=== PATIENT | female | born 2000 | race American Indian/Alaskan Native ===

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

== ENCOUNTER 2019-05-21 18:57 | Emergency (ER) | payer OTHER ==
--- NOTE | 2019-05-21 19:22 | Event Note ---
ED Screening Note Date of service: 05/21/19 Time: 19:18 ED Screening Note: 19 y/o female comes in for left neck pain and shoulder pain from sleeping. No trauma. This initial assessment/diagnostic orders/clinical plan/treatment(s) is/are subject to change based on patients health status, clinical progression and re- assessment by fellow clinical providers in the ED. Further treatment and workup at subsequent clinical providers discretion. Patient/guardian urged not to elope from the ED as their condition may be serious if not clinically assessed and managed. Initial orders include:
[2019-05-21] MEDS ORDERED: FLEXERIL PO ONE ×2 (21:10→21:28)
[2019-05-21] MEDS ORDERED: TYLENOL PO ONE (21:10)
--- NOTE | 2019-05-21 21:28 | Emergency Department Report ---
ED Neck Pain HPI Chief Complaint: Neck Pain/Injury Stated Complaint: NECK/SHOULDER/ARM PAIN Time Seen by Provider: 05/21/19 19:45 Other History: Patient is a 19-year-old female who presents to emergency room with complaints of left-sided neck pain and left shoulder pain that began this morning. patient states she turned over wrong in her bed this morning. pt denies any injury, fall, trauma, numbness, or weakness. pt has not taken anything for her discomfort. she has never had before. LNMP last week. no PMHx. allergy to motrin. ED Review of Systems ROS: Stated complaint: NECK/SHOULDER/ARM PAIN Other details as noted in HPI Comment: All other systems reviewed and negative ED Past Medical Hx - Past Medical History Previous Medical History?: No - Surgical History Past Surgical History?: No - Social History Smoking Status: Never Smoker Substance Use Type: Alcohol - Medications Home Medications: Home Medications Medication Instructions Recorded Confirmed Last Taken Type Amoxicillin [Amoxicillin TAB] 875 mg PO BID #14 tablet 01/21/17 Unknown Rx Brompheniramine/Pseudoephed/Dm 5 ml PO Q8H PRN #100 syrup 01/21/17 Unknown Rx [Bromfed Dm Cough Syrup] Cetirizine HCl [ZyrTEC] 10 mg PO QDAY #14 capsule 01/21/17 Unknown Rx Fluticasone [Flonase] 1 spray NS QDAY #1 bottle 01/21/17 Unknown Rx Neck Pain Exam - Exam General: Vital signs noted. No distress. Alert and acting appropriately. Neck Pain: Yes Left Trapezius Tenderness, Yes Pain with Flexion, No Midline Tenderness, No Right Paraspinal Tenderness, No Left Paraspinal Tenderness, No Right Trapezius Tenderness, No Pain with Rotation Right, No Pain with Rotation Left, No Pain with Extension, No pain with R Lateral Flexion, No Pain with L Lateral Flexion Chest: Yes Clear Lung Sounds, No Pain with Respirations Heart: Yes Regular, No Murmur Back: No Thoracic Tenderness, No Lumbar Tenderness Neuro: No Numbness, No Weakness, No Radicular Deficits ED Course Vital Signs 05/21/19 19:21 Temperature 98.5 F Pulse Rate 102 H Respiratory 19 Rate Blood Pressure 116/76 O2 Sat by Pulse 100 Oximetry ED Medical Decision Making - Medical Decision Making Patient is a 19-year-old female who presents to emergency room with complaints of left-sided neck pain and left shoulder pain that began this morning. patient states she turned over wrong in her bed this morning. pt denies any injury, fall, trauma, numbness, or weakness. pt has not taken anything for her discomfort. she has never had before. LNMP last week. no PMHx. allergy to motrin. on exam pt has left trapezius TTP, no midline C-spine tenderness, no step offs, no deformities, FROM of the neck without difficulty, no focal neuro deficit, neurovascularly intact throughout. pt given anti-inflammatory and muscle relaxer while in the ED. discussed to please take Tylenol as needed for discomfort. May use ice, rest, heat, epsom salt bath. Follow up with her primary care doctor next 2-3 days. Return to the emergency room for any new or worsening symptoms Critical care attestation.: If time is entered above; I have spent that time in minutes in the direct care of this critically ill patient, excluding procedure time. ED Disposition Clinical Impression: Strain of left trapezius muscle Qualifiers: Encounter type: sequela Qualified Code(s): S46.812S - Strain of other muscles, fascia and tendons at shoulder and upper arm level, left arm, sequela Disposition: - TO HOME OR SELFCARE Is pt being admited?: No Does the pt Need Aspirin: No Condition: Stable Instructions: Muscle Strain (ED) Additional Instructions: Please take Tylenol as needed for discomfort. May use ice, rest, heat, epsom salt bath. Follow up with her primary care doctor next 2-3 days. Return to the emergency room for any new or worsening symptoms Referrals: [facility] [Outside] - 2-3 Days [facility] [Provider Group] - 2-3 Days [facility] [Outside] - 2-3 Days Time of Disposition: 21:29 Print Language: CITIZEN OF [place]
[2019-05-21 21:50] VITALS: BP 113/69
== END 2019-05-21 21:49 | disposition home or self-care (01) ==
LOC: ED 18:57
DX: S46.812A Strain of other muscles, fascia and tendons at shoulder and upper arm level, left arm, initial encounter (principal); Z79.1 Long term (current) use of non-steroidal anti-inflammatories (NSAID); Z88.5 Allergy status to narcotic agent; X58.XXXA Exposure to other specified factors, initial encounter; Y93.89 Activity, other specified; Y92.89 Other specified places as the place of occurrence of the external cause; Y99.8 Other external cause status
CPT/HCPCS: 99282

== ENCOUNTER 2019-06-30 00:48 | Emergency (ER) | payer OTHER ==
[2019-06-30] MEDS ORDERED: ATIVAN IV ONE (01:00)
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
[2019-06-30 02:03] VITALS: BP 122/78
== END 2019-06-30 02:32 | disposition home or self-care (01) ==
LOC: ED 00:48
DX: S20.212A Contusion of left front wall of thorax, initial encounter (principal); F41.9 Anxiety disorder, unspecified; Z87.891 Personal history of nicotine dependence; Z79.899 Other long term (current) drug therapy; Z88.6 Allergy status to analgesic agent; V89.2XXA Person injured in unspecified motor-vehicle accident, traffic, initial encounter; Y93.89 Activity, other specified; Y92.488 Other paved roadways as the place of occurrence of the external cause; Y99.8 Other external cause status
CPT/HCPCS: 71101; 93005; 93010; 96374; 99284; J2060

== ENCOUNTER 2019-07-07 20:33 | Emergency (ER) | payer OTHER ==
--- NOTE | 2019-07-07 20:53 | Event Note ---
ED Screening Note ED Screening Note: SEEN 06/30 XRAY NEG HERE FOR GEN PAIN WANTS RECHECK This initial assessment/diagnostic orders/clinical plan/treatment(s) is/are subject to change based on patients health status, clinical progression and re- assessment by fellow clinical providers in the ED. Further treatment and workup at subsequent clinical providers discretion. Patient/guardian urged not to elope from the ED as their condition may be serious if not clinically assessed and managed. Initial orders include:
[2019-07-07 20:56] VITALS: BP 132/72
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
== END 2019-07-07 23:08 | disposition home or self-care (01) ==
LOC: ED 20:33
DX: R07.81 Pleurodynia (principal); M79.10 Myalgia, unspecified site; F41.9 Anxiety disorder, unspecified; V89.2XXD Person injured in unspecified motor-vehicle accident, traffic, subsequent encounter
CPT/HCPCS: 99282

== ENCOUNTER 2019-09-01 20:09 | Emergency (ER) | payer SELFPAY ==
--- NOTE | 2019-09-01 20:37 | Event Note ---
ED Screening Note Date of service: 09/01/19 Time: 20:36 ED Screening Note: 19 y/o female comes in for pelvic pain and vaginal discharge time 2 weeks. LMP 08/07/19. G0. This initial assessment/diagnostic orders/clinical plan/treatment(s) is/are subject to change based on patients health status, clinical progression and re- assessment by fellow clinical providers in the ED. Further treatment and workup at subsequent clinical providers discretion. Patient/guardian urged not to elope from the ED as their condition may be serious if not clinically assessed and managed. Initial orders include:
[2019-09-01 20:38] VITALS: BP 120/66
[2019-09-01 21:21] LABS: Bilirubin,Urine NEG (Negative); Blood,Urine NEG (Negative); Color,Urine Straw (Yellow); Protein,Urine <15 mg/dL mg/dL (Negative); Urobilinogen,Urine < 2.0 mg/dL (<2.0)
[2019-09-01] MEDS ORDERED: AZITHROMYCIN 1 GM ORAL PWDR PACKET PO ONE (21:22)
[2019-09-01] MEDS ORDERED: LIDOCAINE-MPF (1%) 10 MG/1 ML VIAL 5 ML INFILTRATI ONE (21:22)
--- NOTE | 2019-09-01 21:27 | Emergency Department Report ---
HPI - General Chief Complaint: Abdominal Pain Time Seen by Provider: 09/01/19 20:35 - HPI HPI: Room 38 The patient is a 19-year-old female presenting with chief complaint vaginal discharge. The patient states for the past 2-3 weeks she's had vaginal di scharge which has been pink and brown in color. Patient states she's had dysuria for the same time. Patient denies hematuria but admits to 1 day of vaginal bleeding after having intercourse. Patient denies history of fever. Patient states her last menstrual cycle occurs 08/09/2019 was within normal limits. Patient is to vaginal irritation ED Past Medical Hx - Past Medical History Previous Medical History?: No Additional medical history: Panic Attacks/ anxiety - Surgical History Past Surgical History?: No - Family History Family history: no significant - Social History Smoking Status: Current Every Day Smoker Substance Use Type: Alcohol (occasional) - Medications Home Medications: Home Medications Medication Instructions Recorded Confirmed Last Taken Type Amoxicillin [Amoxicillin TAB] 875 mg PO BID #14 tablet 01/21/17 Unknown Rx Brompheniramine/Pseudoephed/Dm 5 ml PO Q8H PRN #100 syrup 01/21/17 Unknown Rx [Bromfed Dm Cough Syrup] Cetirizine HCl [ZyrTEC] 10 mg PO QDAY #14 capsule 01/21/17 Unknown Rx Fluticasone [Flonase] 1 spray NS QDAY #1 bottle 01/21/17 Unknown Rx methOCARBAMOL [Robaxin TAB] 500 mg PO Q6H PRN #14 tablet 06/30/19 Unknown Rx traMADol [Ultram] 50 mg PO Q6HR PRN #12 tablet 06/30/19 Unknown Rx Ciprofloxacin HCl [Ciprofloxacin 500 mg PO Q12HR #14 tab 09/01/19 Unknown Rx TAB] Ibuprofen [Motrin 800 MG tab] 800 mg PO Q8HR PRN #20 tablet 09/01/19 Unknown Rx Phenazopyridine [Pyridium] 200 mg PO TID #6 tab 09/01/19 Unknown Rx ED Review of Systems ROS: Stated complaint: FEMALE CHECK UP/BLOOD WORK Other details as noted in HPI Constitutional: denies: fever Eyes: denies: eye pain ENT: denies: throat pain Respiratory: no symptoms reported Cardiovascular: denies: chest pain Endocrine: no symptoms reported Gastrointestinal: abdominal pain Genitourinary: dysuria, discharge, abnormal menses. denies: hematuria Musculoskeletal: denies: back pain Neurological: denies: headache Physical Exam - Physical Exam Vital Signs: Vital Signs 09/01/19 09/01/19 20:15 20:35 Temperature 98.3 F 98.6 F Pulse Rate 89 96 H Respiratory 16 16 Rate Blood Pressure 129/65 120/66 O2 Sat by Pulse 100 100 Oximetry Physical Exam: GENERAL: The patient is well-developed well-nourished female sitting on stretcher not appearing to be in acute distress. [] HEENT: Normocephalic. Atraumatic. Extraocular motions are intact. Patient has moist mucous membranes. NECK: Supple. Trachea midline CHEST/LUNGS: Clear to auscultation. There is no respiratory distress noted. HEART/CARDIOVASCULAR: Regular. There is no tachycardia. There is no gallop rub or murmur. ABDOMEN: Abdomen is soft, with mild discomfort to palpation in the suprapubic region. Patient has normal bowel sounds. There is no abdominal distention. SKIN: There is no rash. There is no edema. There is no diaphoresis. NEURO: The patient is awake, alert, and oriented. The patient is cooperative. The patient has normal speech and gait. MUSCULOSKELETAL: There is no evidence of acute injury. PELVIC: Whitish brown discharge present in the vaginal vault ED Course Vital Signs 09/01/19 09/01/19 20:15 20:35 Temperature 98.3 F 98.6 F Pulse Rate 89 96 H Respiratory 16 16 Rate Blood Pressure 129/65 120/66 O2 Sat by Pulse 100 100 Oximetry ED Medical Decision Making - Lab Data Laboratory Tests 09/01/19 21:07 Urine Color Straw Urine Turbidity Clear Urine pH 7.0 Ur Specific [place] 1.013 Urine Protein <15 mg/dl Urine Glucose (UA) Neg Urine Ketones Neg Urine Blood Neg Urine Nitrite Neg Urine Bilirubin Neg Urine Urobilinogen < 2.0 Ur Leukocyte Esterase Neg Urine WBC (Auto) 1.0 Urine RBC (Auto) 1.0 U Epithel Cells (Auto) 2.0 Urine HCG, Qual Negative Wet prep-less than 20% clue cells, no yeast, no Trichomonas - Differential Diagnosis vaginitis, urethritis, UTI, bacterial vaginosis Critical care attestation.: If time is entered above; I have spent that time in minutes in the direct care of this critically ill patient, excluding procedure time. ED Disposition Clinical Impression: Vaginal discharge, Dysuria Disposition: [id number] TO HOME OR SELFCARE Is pt being admited?: No Does the pt Need Aspirin: No Condition: Stable Instructions: Abdominal Pain (ED) Prescriptions: Ciprofloxacin HCl [Ciprofloxacin TAB] 500 mg PO Q12HR #14 tab Ibuprofen [Motrin 800 MG tab] 800 mg PO Q8HR PRN #20 tablet PRN Reason: Pain, Moderate (4-6) Phenazopyridine [Pyridium] 200 mg PO TID #6 tab Referrals: BYRON JACKMAN MD [Staff Physician] - 2-3 Days (Dr. Jackman is an [employer] TE[employer]. Please follow up with her for further evaluation) [facility] [Outside] - 3-5 Days Time of Disposition: 21:44
[2019-09-01 21:34] LABS: HCG Qualitative,Urine Negative (Negative)
== END 2019-09-01 22:04 | disposition home or self-care (01) ==
LOC: ED 20:09
DX: N89.8 Other specified noninflammatory disorders of vagina (principal); R30.0 Dysuria; F17.200 Nicotine dependence, unspecified, uncomplicated
CPT/HCPCS: 81001; 81025; 87210; 87591; 96372; 99284; J0696

== ENCOUNTER 2019-11-30 17:09 | Emergency (ER) | payer SELFPAY ==
[2019-11-30 18:12] VITALS: BP 113/56
== END 2019-11-30 20:54 ==
LOC: ED 17:09
DX: R10.30 Lower abdominal pain, unspecified (principal); Z53.21 Procedure and treatment not carried out due to patient leaving prior to being seen by health care provider